=== PATIENT | female | born 1945 | race Caucasian/White ===

== ENCOUNTER 2020-04-10 08:03 | Inpatient (IN) ==
[2020-04-10] MEDS ORDERED: SODIUM CHLORIDE 0.9% 500 ML IV STA (08:12)
[2020-04-10 08:53] LABS: Bacteria,Urine Moderate /HPF (Few); Bilirubin,Urine Negative (Negative); Blood, Urine Small mg/dL (Negative); Glucose,Urine (UA) Negative (Negative); Hyaline Casts,Urine 17 /LPF (0-3); Ketones,Urine Negative (Negative); Mucus,Urine Occasional /LPF (Occasional); Nitrite,Urine Negative (Negative); Protein,Urine 100 MG/DL; RBC,Urine 5 /HPF (0-4); Squamous Epithelial Cell,Urine Occasional /HPF (0-10); Urine Appearance CLOUDY (Clear); Urine Color Yellow (Yellow); Urine Specific Gravity 1.011 (1.001-1.035); Urine Urobilinogen < 2.0 EU/DL (0.2-1.0); WBC,Urine 767 /HPF (0-6)
[2020-04-10 09:17] LABS: Basophils % 0.2 % (0.0-0.8); Eosinophils % 0.2 % (0.00-10.9); Hematocrit 40.9 VOL% (35.7-47.0); Immature Granulocytes % 0.5 %; Lymphocytes % 5.1 % (21.3-54.2); Mean Corpuscular HGB Conc 31.8 GM/DL (32-36); Mean Corpuscular Volume 93.4 FL (87-102); Mean Platelet Volume 10.1 FL (9.6-12.0); Platelet Count 315 T/CUMM (130-400); Red Blood Count 4.38 MC/CUMM (3.8-5.5); Red Cell Distribution Width 13.3 % (9.3-17.3); White Blood Count 19.3 T/CUMM (4-12)
[2020-04-10] MEDS ORDERED: GLUCAGON 1 MG VIAL IM PRN ×2 (09:31→15:11)
[2020-04-10] MEDS ORDERED: DEXTROSE 50% 25 GM/50 ML VIAL IV PRN ×2 (09:31→15:11)
[2020-04-10] MEDS ORDERED: hydrALAZINE 20 MG/1 ML VIAL IV PRN (09:31)
[2020-04-10] MEDS ORDERED: ONDANSETRON 4 MG/2 ML VIAL IV PRN (09:31)
[2020-04-10 09:44] LABS: INR 1.2; PT Patient Result 12.7 SECS (9.8-11.9); Partial Thromboplastin Time 27.5 SECS (23.9-33.8)
[2020-04-10 09:45] LABS: Alanine Aminotransferase 22 U/L (13-56); Alkaline Phosphatase 82 U/L (45-117); Aspartate Amino Transferase 18 U/L (0-37); Bilirubin,Total < 0.39 MG/DL (0.2-1.0); Blood Urea Nitrogen 57 MG/DL (7-18); Calcium 10.1 MG/DL (8.5-10.1); Estimated Glom Filtration Rate 21 ML/MIN; Glucose 126 MG/DL (74-106); Osmolality,Calculated 296.4 MOS/KG (273-304); Total Protein 7.8 G/DL (6.4-8.3)
[2020-04-10 10:59] LABS: Risk Ratio 2.98; Thyroid Stimulating Hormone 3.98 uIU/ml (0.358-3.74); VLDL CHOLESTEROL 26.6 MG/DL
[2020-04-10] MEDS: MORPHINE 4 MG/1 ML VIAL IV PRN ×3 (12:02→20:39)
[2020-04-10] MEDS: ENOXAPARIN 30 MG/0.3 ML SYRINGE SUBCUT SCH (14:09)
[2020-04-10] MEDS: SODIUM CHLORIDE 0.9% 1,000 ML IV SCH (14:09)
[2020-04-11] MEDS: SODIUM CHLORIDE 0.9% 1,000 ML IV SCH ×3 (00:05→16:58)
[2020-04-11] MEDS: MORPHINE 4 MG/1 ML VIAL IV PRN (05:14)
[2020-04-11 05:38] LABS: Basophils % 0.4 % (0.0-0.8); Eosinophils # 0.1 10*3/uL (0.0-0.87); Eosinophils % 0.8 % (0.00-10.9); Hematocrit 36.2 VOL% (35.7-47.0); Hemoglobin 11.4 GM/DL (12.0-16.0); Immature Granulocytes % 0.6 %; Immature Granulocytes Absolute 0.06 #; Lymphocytes # 1.3 10*3/uL (1.4-4.0); Lymphocytes % 11.9 % (21.3-54.2); Mean Corpuscular HGB Conc 31.5 GM/DL (32-36); Mean Corpuscular Volume 94.5 FL (87-102); Mean Platelet Volume 10.7 FL (9.6-12.0); Monocytes % 6.1 % (1.7-12.7); Neutrophils % 80.2 % (38.7-73.9); Platelet Count 265 T/CUMM (130-400); Red Blood Count 3.83 MC/CUMM (3.8-5.5); Red Cell Distribution Width 13.8 % (9.3-17.3); White Blood Count 10.8 T/CUMM (4-12)
[2020-04-11 05:54] LABS: Calcium 9.5 MG/DL (8.5-10.1); Osmolality,Calculated 295.3 MOS/KG (273-304)
[2020-04-11] MEDS ORDERED: POTASSIUM CHLORIDE 20 MEQ TABLET PO ONE ×2 (08:00→17:00)
[2020-04-11] MEDS: PANTOPRAZOLE 40 MG VIAL IV SCH (08:04)
[2020-04-11] MEDS: ENOXAPARIN 30 MG/0.3 ML SYRINGE SUBCUT SCH (09:19)
[2020-04-11] MEDS ORDERED: ceFAZolin 2,000 MG in PREMIX 1 EACH IV ONE (11:00)
[2020-04-11] MEDS ORDERED: ALBUTEROL 2.5 MG/3 ML NEB RESP TX PRN (11:36)
[2020-04-11] MEDS ORDERED: BUPIVACAINE MPF 0.5% /EPI 30 ML VIAL ONE (13:02)
[2020-04-11] MEDS ORDERED: BISACODYL 10 MG SUPP RECTAL PRN (14:30)
[2020-04-11] MEDS ORDERED: PROMETHAZINE 25 MG/1 ML VIAL IM PRN (14:30)
[2020-04-11] MEDS ORDERED: diphenhydrAMINE CAP 25 MG CAPSULE PO PRN (14:30)
[2020-04-11] MEDS ORDERED: LACTULOSE 20 GM/30 ML UDCUP PO PRN (14:30)
[2020-04-11] MEDS ORDERED: MAGNESIUM HYDROXIDE SUSP 30 ML UDCUP PO PRN (14:30)
[2020-04-11] MEDS ORDERED: MORPHINE 4 MG/1 ML VIAL IV PRN (14:33)
[2020-04-11] MEDS ORDERED: HYDROmorphone 2 MG/1 ML VIAL ONE (14:52)
[2020-04-11] MEDS: HYDROmorphone 2 MG/1 ML VIAL IV PRN ×4 (14:55→15:10)
[2020-04-11] MEDS ORDERED: GLYCOPYRROLATE 0.4 MG/2 ML VIAL ONE (15:00)
[2020-04-11] MEDS ORDERED: ONDANSETRON 4 MG/2 ML VIAL ONE (15:00)
[2020-04-11] MEDS ORDERED: fentaNYL 100 MCG/2 ML VIAL ONE (15:00)
[2020-04-11] MEDS ORDERED: SEVOFLURANE 1 UNIT/15 MINUTE INH ONE (15:00)
[2020-04-11] MEDS ORDERED: propofoL 200 MG/20 ML VIAL IV ONE (15:00)
[2020-04-11] MEDS ORDERED: LIDOCAINE 2% 5 ML VIAL ONE (15:00)
[2020-04-11] MEDS ORDERED: DEXAMETHASONE 4 MG/1 ML VIAL ONE (15:00)
[2020-04-11] MEDS ORDERED: NEOSTIGMINE 10 MG/10 ML VIAL ONE (15:01)
[2020-04-11] MEDS ORDERED: PHENYLEPHRINE 1 MG/10 ML SYRINGE IV ONE (15:01)
[2020-04-11] MEDS ORDERED: LACTATED RINGERS 1,000 ML IV ONE (15:01)
[2020-04-11] MEDS ORDERED: ACETAMINOPHEN 1,000 MG/100 ML VIAL IV ONE (15:01)
[2020-04-11] MEDS ORDERED: ROCURONIUM 100 MG/10 ML VIAL IV ONE (15:01)
[2020-04-11] MEDS ORDERED: ONDANSETRON 4 MG/2 ML VIAL IV PRN (15:07)
[2020-04-11] MEDS: cefTRIAXone 2,000 MG in SYRINGE 1 EACH IV SCH (16:58)
[2020-04-11] MEDS: ceFAZolin 1,000 MG in SYRINGE 1 EACH IV SCH (17:47)
[2020-04-11] MEDS: POTASSIUM CHLORIDE RIDER 10 MEQ in PREMIX 1 EACH IV SCH ×3 (17:47→22:05)
[2020-04-11] MEDS: QUEtiapine 25 MG TABLET PO SCH (21:59)
[2020-04-11] MEDS: MIRTAZAPINE 15 MG TABLET PO SCH (22:01)
[2020-04-11] MEDS: GABAPENTIN 100 MG CAPSULE PO SCH (22:01)
[2020-04-12] MEDS: ceFAZolin 1,000 MG in SYRINGE 1 EACH IV SCH ×2 (01:23→09:00)
[2020-04-12 06:15] LABS: Basophils % 0.1 % (0.0-0.8); Hematocrit 28.2 VOL% (35.7-47.0); Immature Granulocytes % 0.5 %; Immature Granulocytes Absolute 0.05 #; Lymphocytes # 0.8 10*3/uL (1.4-4.0); Lymphocytes % 7.5 % (21.3-54.2); Mean Corpuscular HGB Conc 31.6 GM/DL (32-36); Mean Corpuscular Volume 95.3 FL (87-102); Mean Platelet Volume 10.7 FL (9.6-12.0); Monocytes % 5.8 % (1.7-12.7); Neutrophils % 86.1 % (38.7-73.9); Red Cell Distribution Width 13.5 % (9.3-17.3); White Blood Count 10.2 T/CUMM (4-12)
[2020-04-12 06:20] LABS: Red Blood Count 2.96 MC/CUMM (3.8-5.5)
[2020-04-12 06:21] LABS: Hemoglobin 8.9 GM/DL (12.0-16.0); Platelet Count 197 T/CUMM (130-400)
[2020-04-12 06:41] LABS: Calcium 8.9 MG/DL (8.5-10.1)
[2020-04-12] MEDS: LEVOTHYROXINE 25 MCG TABLET PO SCH (07:45)
[2020-04-12] MEDS: POTASSIUM CHLORIDE RIDER 10 MEQ in PREMIX 1 EACH IV SCH (08:20)
[2020-04-12] MEDS: FLUoxetine 10 MG CAPSULE PO SCH (08:21)
[2020-04-12] MEDS: MONTELUKAST 10 MG TABLET PO SCH (08:21)
[2020-04-12] MEDS: ATORVASTATIN 40 MG TABLET PO SCH (08:21)
[2020-04-12] MEDS: GABAPENTIN 100 MG CAPSULE PO SCH ×2 (08:21→21:25)
[2020-04-12] MEDS: PANTOPRAZOLE 40 MG VIAL IV SCH (08:21)
[2020-04-12] MEDS: ENOXAPARIN 30 MG/0.3 ML SYRINGE SUBCUT SCH (09:00)
[2020-04-12] MEDS: SODIUM CHLORIDE 0.9% 1,000 ML IV SCH (11:42)
[2020-04-12] MEDS: DOCUSATE SODIUM 100 MG CAPSULE PO SCH ×2 (11:42→21:25)
[2020-04-12] MEDS: cefTRIAXone 2,000 MG in SYRINGE 1 EACH IV SCH (14:02)
[2020-04-12] MEDS ORDERED: TUBERCULIN SKIN TEST 0.1 ML SYRINGE INTRADERM ONE (15:38)
[2020-04-12] MEDS: QUEtiapine 25 MG TABLET PO SCH (21:25)
[2020-04-12] MEDS: MIRTAZAPINE 15 MG TABLET PO SCH (21:25)
[2020-04-13] MEDS: SODIUM CHLORIDE 0.9% 1,000 ML IV SCH ×2 (02:34→15:04)
[2020-04-13 04:37] LABS: Basophils % 0.3 % (0.0-0.8); Eosinophils # 0.1 10*3/uL (0.0-0.87); Eosinophils % 1.6 % (0.00-10.9); Hematocrit 27.7 VOL% (35.7-47.0); Hemoglobin 8.6 GM/DL (12.0-16.0); Immature Granulocytes % 0.8 %; Immature Granulocytes Absolute 0.07 #; Lymphocytes # 1.6 10*3/uL (1.4-4.0); Lymphocytes % 18.5 % (21.3-54.2); Mean Corpuscular Volume 94.9 FL (87-102); Mean Platelet Volume 10.8 FL (9.6-12.0); Monocytes % 5.5 % (1.7-12.7); Neutrophils % 73.3 % (38.7-73.9); Platelet Count 186 T/CUMM (130-400); Red Blood Count 2.92 MC/CUMM (3.8-5.5); Red Cell Distribution Width 13.6 % (9.3-17.3); White Blood Count 8.7 T/CUMM (4-12)
[2020-04-13 05:01] LABS: Calcium 8.8 MG/DL (8.5-10.1); Osmolality,Calculated 292.7 MOS/KG (273-304)
[2020-04-13] MEDS: LEVOTHYROXINE 25 MCG TABLET PO SCH (05:32)
[2020-04-13] MEDS: GABAPENTIN 100 MG CAPSULE PO SCH ×2 (08:49→20:24)
[2020-04-13] MEDS: DOCUSATE SODIUM 100 MG CAPSULE PO SCH ×2 (08:49→20:24)
[2020-04-13] MEDS: ATORVASTATIN 40 MG TABLET PO SCH (08:49)
[2020-04-13] MEDS: FLUoxetine 10 MG CAPSULE PO SCH (08:49)
[2020-04-13] MEDS: POTASSIUM CHLORIDE 20 MEQ/15 ML UDCUP PER TUBE PRN ×3 (08:49→20:24)
[2020-04-13] MEDS: MONTELUKAST 10 MG TABLET PO SCH (08:49)
[2020-04-13] MEDS: PANTOPRAZOLE 40 MG VIAL IV SCH (08:50)
[2020-04-13] MEDS: ENOXAPARIN 30 MG/0.3 ML SYRINGE SUBCUT SCH (09:16)
[2020-04-13] MEDS ORDERED: POTASSIUM CHLORIDE 20 MEQ TABLET PO ONE (12:36)
[2020-04-13] MEDS: cefTRIAXone 2,000 MG in SYRINGE 1 EACH IV SCH (15:04)
[2020-04-13 19:57] VITALS: BP 127/64
[2020-04-13] MEDS: QUEtiapine 25 MG TABLET PO SCH (20:24)
[2020-04-13] MEDS: MIRTAZAPINE 15 MG TABLET PO SCH (20:24)
== END 2020-04-13 21:42 | disposition swing bed (61) | DRG 481 ==
LOC: N.ED 08:03 → N.EDINP 09:15 → N.3E 10:13
PROVIDERS: ADMIT Emergency Medicine; ATTEND Emergency Medicine